=== PATIENT | female | born 1955 | race Caucasian/White ===

== ENCOUNTER 2018-04-05 09:30 | Inpatient (IN) | payer OTHER ==
[~2018-04-05] VITALS: Ht 154.9 cm; Wt 77.1 kg
[~2018-04-05 09:30] MED LIST: CARAFATE1 GM PO; DICY20TA PO; ENALAPRIL MALEA10 MG PO; FIORINAL-COD 31 EACH PO; GABAPENTIN600 MG PO; PRILOSEC OTC20 MG PO; REGLAN5 MG/5 ML PO; TRAMADOL HCL50 MG PO; ZANTAC300 MG PO
== END 2018-04-13 13:45 | DRG 470 ==
LOC: O/R 04-11 08:02 → SURH 04-11 09:30
PROVIDERS: Orthopaedic Surgery
PROC: 0SRC0J9 Replacement of Right Knee Joint with Synthetic Substitute, Cemented, Open Approach (ICD-10-PCS; principal; 2018-04-11 10:45)
DX: M17.11 Unilateral primary osteoarthritis, right knee (principal); D62 Acute posthemorrhagic anemia; I10 Essential (primary) hypertension; F32.89 Other specified depressive episodes

== ENCOUNTER 2022-04-01 08:00 | Inpatient (IN) | payer OTHER ==
[~2022-04-01] VITALS: Ht 154.9 cm; Wt 88.0 kg
[2022-04-01] MEDS ORDERED: VASOTEC20 M1 PO (09:23)
[2022-04-01] MEDS ORDERED: REGLAN PO (09:24)
[2022-04-01] MEDS ORDERED: PROTONIX40 MG PO (09:24)
[2022-04-01] MEDS ORDERED: PEPCID PO (09:24)
[2022-04-06] MEDS ORDERED: PEPCID40 MG PO (10:28)
== END 2022-04-08 14:56 | disposition home or self-care (01) | DRG 470 ==
LOC: O/R 04-06 05:53 → SURG 04-06 05:53 → SURH 04-06 08:00 → SURG 04-06 13:15 → SURH 04-06 18:30 → SURG 04-08 14:56
PROVIDERS: ADMIT Orthopaedic Surgery; ATTEND Orthopaedic Surgery
PROC: 0SRD0J9 Replacement of Left Knee Joint with Synthetic Substitute, Cemented, Open Approach (ICD-10-PCS; principal; 2022-04-06 18:30)
DX: M17.12 Unilateral primary osteoarthritis, left knee (principal); D62 Acute posthemorrhagic anemia; M85.662 Other cyst of bone, left lower leg; I10 Essential (primary) hypertension; E66.8 Other obesity; Z20.822 Contact with and (suspected) exposure to COVID-19